=== PATIENT | male | born 1940 | race Caucasian/White ===

== ENCOUNTER 2019-04-30 14:33 | Emergency (ER) | payer MEDICARE ==
--- NOTE | 2019-04-30 17:19 | ED ---
Laceration/Wound HPI - HPI Summary HPI Summary: 78-year-old male presents with complaints of laceration to the tip of his left index finger. States he accidentally cut his finger on with a sharp knife while deboning a pork chop about 1 hour ago. Bleeding was controlled prior to arrival with direct pressure. Reports full range of motion to the finger. Last tetanus was approximately 2 years ago. Denies any numbness or tingling. - History of Current Complaint Stated Complaint: FINGER LAC Time Seen by Provider: 04/30/19 16:29 Hx Obtained From: Patient Pain Intensity: 0 - Additional Pertinent History Primary Care Physician: [id number] - Allergy/Home Medications Allergies/Adverse Reactions: Allergies Allergy/AdvReac Type Severity Reaction Status Date / Time oxycodone Allergy Altered Verified 04/30/19 14:52 Mental Status PMH/Surg Hx/FS Hx/Imm Hx Endocrine/Hematology History: Reports: Hx Diabetes - Type 2 Cardiovascular History: Reports: Hx Hypercholesterolemia, Hx Hypertension Denies: Hx Pacemaker/ICD Respiratory History: Reports: Hx Sleep Apnea - pt stated he cannot tolerate wearing mask Denies: Hx Asthma GI History: Reports: Hx Gastroesophageal Reflux Disease History: Reports: Other Problems/Disorders - sees Dr. Johnson regularly for prostate Musculoskeletal History: Reports: Hx Arthritis, Hx Back Problems Sensory History: Denies: Hx Cataracts, Hx Contacts or Glasses, Hx Glaucoma, Hx Hearing Aid Opthamlomology History: Denies: Hx Cataracts, Hx Contacts or Glasses, Hx Glaucoma Neurological History: Reports: Other Neuro Impairments/Disorders - HX OF PINEAL CYCST MANY YEARS AGO/PAIN CLINIC PATIENT Psychiatric History: Denies: Hx Panic Disorder - Surgical History Surgery Procedure, Year, and Place: VERICOCELE 35 YRS AGO. CYST REMOVED FROM INFRONT OF RT EAR. A CHILD. LEFT HYDROCELE 2008 AAT [facility] [place]. LAMINECTOMY 09/06 - Immunization History Date of Tetanus Vaccine: 2 years ago Infectious Disease History: Yes Infectious Disease History: Reports: Hx Shingles - 2013 Denies: Traveled Outside the [place] in Last 30 Days - Family History Known Family History: Positive: Cardiac Disease - Social History Occupation: Retired Lives: With Family Alcohol Use: Weekly Alcohol Amount: 2-4 oz vodka daily Substance Use Type: Reports: None Smoking Status (MU): Former Smoker Type: Cigars Amount Used/How Often: 3 cigars/week Have You Smoked in the Last Year: Yes Review of Systems Constitutional: Negative Cardiovascular: Negative Respiratory: Negative Gastrointestinal: Negative Genitourinary: Negative Negative: Decreased ROM Skin: Other - See HPI Neurological: Negative All Other Systems Reviewed And Are Negative: Yes Physical Exam - Summary Physical Exam Summary: GENERAL APPEARANCE: Well developed, well nourished, alert and cooperative, and appears to be in no acute distress. CARDIAC: Normal S1 and S2. No S3, S4 or murmurs. Rhythm is regular. There is no peripheral edema, cyanosis or pallor. Extremities are warm and well perfused. Capillary refill is less than 2 seconds. Peripheral pulses intact. LUNGS: Clear to auscultation without rales, rhonchi, wheezing or diminished breath sounds. ABDOMEN: Positive bowel sounds. Soft, nondistended, nontender. No guarding or rebound. No masses or hepatosplenomegally. MUSKULOSKELETAL: ROM intact to all extremities. No joint erythema or tenderness. Normal muscular development. Normal gait. EXTREMITIES: Linear superficial c-shaped flap laceration to the pad of his distal left index finger with bleeding controlled. No nail involvement. SKIN: Skin normal color, texture and turgor. Triage Information Reviewed: Yes Vital Signs On Initial Exam: Initial Vitals Temp Pulse Resp BP Pulse Ox 98.5 F 61 16 136/58 97 04/30/19 14:46 04/30/19 14:46 04/30/19 14:46 04/30/19 14:46 04/30/19 14:46 Vital Signs Reviewed: Yes Procedures - Laceration/Wound Repair 1 Location: upper extremity - left index finger Description: Linear - flap laceration Length, Depth and Shape: superficial 1 cm c-shaped flap laceration Irrigated w/ Saline (ccs): 500 Laceration/Wound Explored: clean Closure: Skin Adhesive, SteriStrips Diagnostics - Vital Signs Vital Signs Temp Pulse Resp BP Pulse Ox 04/30/19 14:46 98.5 F 61 16 136/58 97 - Laboratory Lab Statement: Any lab studies that have been ordered have been reviewed, and results considered in the medical decision making process. Laceration Repair Course/Dx - Course Course Of Treatment: 78-year-old male presents with complaints of laceration to the tip of his left index finger. States he accidentally cut his finger on with a sharp knife while deboning a pork chop about 1 hour ago. Bleeding was controlled prior to arrival with direct pressure. Reports full range of motion to the finger. Last tetanus was approximately 2 years ago. Denies any numbness or tingling. Afebrile. Vital signs stable. On exam patient was noted to have a linear superficial flap laceration to the pad of his distal left index finger with bleeding controlled. No nail involvement. The wound was thoroughly irrigated by the RN prior to wound repair. The wound margins were well approximated therefore decision was made to close the wound using Steri- Strips and a skin adhesive. A clean gauze dressing was applied by the RN. Wound care, anticipatory guidance, and warning symptoms were reviewed with the patient. Verbalizes understanding and agrees with plan of care. - Differential Dx Differental Diagnoses: Laceration, Tendon Laceration - Clinical Impression Provider Diagnoses: Laceration of left index finger Discharge ED - Sign-Out/Discharge Documenting (check all that apply): Patient Departure All imaging exams completed and their final reports reviewed: No Studies - Discharge Plan Condition: Stable Disposition: HOME Patient Education Materials: Finger Laceration (ED), Skin Adhesive Care (ED), Steristrips (ED) Referrals: Beba Velazquez MD [Primary Care Provider] - Additional Instructions: Your laceration as repaired with a combination of skin adhesive and Steri- Strips. The adhesive will slowly wear off over the next several days. Keep the adhesive dry for the next 24 hours. After 24 hours you may shower and wash your hands as usual. Do not apply any lotions or ointments to the adhesive as this may dissolve the adhesive and cause the wound to reopen. The Steri-Strips will slowly peel up from the ends over the next few days. You may trim the ends as needed but do not pull off or you may reopen the wound. Keep the wound covered with a dressing. Change this at least once a day or anytime the dressing becomes wet or soiled. Take acetaminophen (Tylenol) or ibuprofen (Advil, Motrin) according to directions as needed for pain. Watch for signs of infection including fever greater than 100.5 F, severe pain not managed with with pain medicine, redness that spreads, swelling of the finger, pus draining from the wound, or any worsening of symptoms. Seek immediate medical attention if any of these occur. - Billing Disposition and Condition Condition: STABLE Disposition: Home
[2019-04-30 18:01] VITALS: BP 132/64
--- OUTSIDE RECORDS SUMMARY | 2019-05-06 14:02 | XMS REPORT | Continuity of Care Document ---
:1940 External Reference #:[id number] Author Name Mai Araiza M.D. (transmitted by agent of provider Savana Aguilar) Address [address] [place] [address] Care Team Providers Name Role Phone Beba Turner MD - Internal Care Team Information [employer] Vendor Medicine Problems Active Problems Provider Date Morbid obesity Mai Araiza M.D. Onset: 09/16/2015 Mixed hyperlipidemia Mai Araiza M.D. 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 Onset: 10/12/2015 coronary artery without angina pectoris Essential hypertension Mai Araiza M.D. Onset: 11/30/2016 Neurogenic claudication co-occurrent and due to Gunnar Mcguire M.D. Onset: spinal stenosis of lumbar region Social History Type Date Description Comments Sex Unknown Tobacco Use Start: Unknown Never Smoked Cigarettes ETOH Use Denies alcohol use no alcohol since 2015 ETOH Use Consumes 1 glass of wine per day Recreational Drug Use Denies Drug Use Tobacco Use Start: Unknown Patient is a former smoked occasional End: Unknown smoker cigar- pt no longer smokes, pt only chews on them Smoking Status Reviewed: 03/25/19 Patient is a former smoked occasional smoker cigar- pt no longer smokes, pt only chews on them Exercise Type/Frequency Exercises sporadically Allergies, Adverse Reactions, Alerts Active Allergies Reaction Severity Comments Date Oxycodone unconsciousness Severe 11/30/2016 Inactive Allergies NKDA 04/17/2014 Medications Active Medications SIG Qnty Indications Ordering Provider Date Magnesium Oxide 1 by mouth 90caps Mai Araiza M.D. 04/12/2017 400mg every day Capsules Atorvastatin Calcium Take 1 tab (20 60tabs Macadam, Beba 20mg mg) VALENTINA Gann MD Tablets Omeprazole 1 t po bid Unknown 20mg Capsules DR Thakkar 1 by mouth 90tabs Unknown 100-25mg Tablets every day Aspir-81 1 by mouth Unknown 81mg Tablets DR every day Diltiazem HCL ER 1 by mouth Unknown 240mg every day Caps ER 24HR Multivitamin Adult 1 by mouth Unknown every day Tablets Vitamin D-3 1 by mouth Unknown 1000Unit every day Capsules Cpap nasal Cpap Unknown Device Medications Administered in Office Medication SIG Qnty Indications Ordering Provider Date Technetium TC 99M Mai Araiza M.D. 04/13/2017 Tetrofosmin, Per Unit Dose Up To 40 Millicuries Injection Technetium TC 99M William Buckner M.D., 04/12/2017 Tetrofosmin, Per Unit Dose [facility] Up To 40 Millicuries Injection Inj, Regadenoson, 0.1 MG Anjel Fonseca, DO [facility] 09/30/2015 Injection Technetium TC 99M Anjel Fonseca, DO [facility] 09/30/2015 Tetrofosmin, Per Unit Dose Up To 40 Millicuries Injection Immunizations Description No Information Available Vital Signs Date Vital Result Comment 03/25/2019 8:36am Height 69 inches 5'9" Weight 244.00 lb with shoes Heart Rate 74 /min BP Systolic Sitting 136 mmHg Ra BP Diastolic Sitting 76 mmHg Ra BP Systolic Standing 126 mmHg Ra BP Diastolic Standing 70 mmHg Ra BMI (Body Mass Index) 36.0 kg/m2 Ejection Fraction 65-70% Echo 10/07/2015 03/26/2018 8:41am Height 69 inches 5'9" Weight 231.00 lb Heart Rate 74 /min regular BP Systolic Sitting 122 mmHg large cuff left arm BP Diastolic Sitting 70 mmHg large cuff left arm BP Systolic Standing 134 mmHg BP Diastolic Standing 72 mmHg Respiratory Rate 16 /min Pain Level 0 O2 % BldC Oximetry 97 % BMI (Body Mass Index) 34.1 kg/m2 Results Description No Information Available Procedures Date Code Description Status 03/25/2019 17990 EKG Tracing & Interpretation Completed Medical Devices Description No Information Available Encounters Type Date Location Provider Dx Diagnosis Office Visit 03/25/2019 [facility] aMi Araiza I25.10 [facility] heart 9:00a Of Luz Terrell disease of [place] coronary artery w/o ang pctrs E78.2 Mixed hyperlipidemia I10 Essential (primary) hypertension R00.2 Palpitations Z68.36 Body mass index (BMI) 36.0-36.9, adult Assessments Date Code Description Provider 03/25/2019 I25.10 Atherosclerotic heart disease of [place] coronary Mai Araiza M.D. artery without angina pectoris 03/25/2019 E78.2 Mixed hyperlipidemia Mai Araiza M.D. 03/25/2019 I10 Essential (primary) hypertension Mai Araiza M.D. 03/25/2019 R00.2 Palpitations Mai Araiza M.D. 03/25/2019 Z68.36 Body mass index (BMI) 36.0-36.9, adult Mai Araiza M.D. Plan of Treatment 03/25/2019 - Mai Araiza M.D.I25.10 Atherosclerotic heart disease of [place] coronary artery without angina pectorisComments:Your ECG is normal.Follow up:1 yearE78.2 Mixed hyperlipidemiaComments:Good control. LDL goal is <= 70 with coronary artery disease.Recommendations:Continue current medication Healthy fats are nuts, oily fish and more. Avoid excessive fatty meats.For your elevated triglycerides and weight: Minimize foods with refined sugar, flour. Low "white" foods, white flour, sugar, rice, potatoes.I10 Essential (primary) hypertensionComments:Well controlled on Diltiazem, Hyzaar.R00.2 PalpitationsComments:With rest, improved with Magnesium, history of PVC' s.Z68.36 Body mass index (BMI) 36.0-36.9, adultComments:Continue to work on diet : smaller portions, more regular meals to decrease the chance of glucose/sugar problems. Mediterranean diet, avoid/minimize concentrated sweets and refined carbohydrates: low "white" foods, white sugar, white flour, white rice, potatoes... Functional Status Description No Information Available Mental Status Description No Information Available Referrals Description No Information Available
--- OUTSIDE RECORDS SUMMARY | 2019-05-06 14:02 | XMS REPORT | Continuity of Care Document ---
:1940 External Reference #:[id number] Author Name Beba Turner MD Address [address] [place] [id number] Care Team Providers Name Role Phone Shaun Lu M.D. (Neurosurgeon) Care Team Information [employer] Mai Arazia Care Team Information [employer] [phone] Problems Active Problems Provider Date Benign essential hypertension Fernanda Aguirre RN MS SCRAPPER Onset: 11/29/2006 Pure hypercholesterolemia Fernanda Aguirre RN MS SCR[facility]PER Onset: 11/29/2006 Peptic reflux disease Fernanda Aguirre, RN MS SCRAPPER Onset: 11/29/2006 Type 2 diabetes mellitus Beba Turner MD Onset: 07/20/2010 Mixed hyperlipidemia Beba Turner MD Onset: 11/19/2017 Essential hypertension Beba Turner MD Onset: 09/01/2015 Social History Type Date Description Comments Sex Unknown Tobacco Use Start: Unknown Currently Smokes an Occasional quit Cigar ETOH Use consumes 3-4 glasses per week Tobacco Use Start: Unknown End: Unknown Patient is a former smoker Smoking Status Reviewed: 03/22/18 Patient is a former smoker Allergies, Adverse Reactions, Alerts Active Allergies Reaction Severity Comments Date Oxycodone mental status changes 06/06/2016 Inactive Allergies NKDA 11/29/2006 Medications Active Medications SIG Qnty Indications Ordering Date Provider Meclizine HCL take 1/2-1 tablet 15tabs H81.10 Beba Turner 03/11/2019 25mg by mouth three MD Christina Tablets times daily as needed Magnesium Oxide 1 by mouth every E83.42 Beba Turner 11/19/2017 250mg night at bedtime MD Chritsina Tablets Cpap G47.33 [facility] 09/11/2017 MD Christina Cardizem LA 1 by mouth every 90tabs I10 [facility] 07/09/2017 240mg day MD Christina Tablets ER 24HR Atorvastatin Calcium Take 1 Tablet AT 90tabs E78.2 [facility] 2017 Bedtime MD Christina 20mg Tablets Nystatin apply to affected 90gm [facility] 07/02/2017 382036Suhe/GM area(s) two times MD Christina Cream a day Valacyclovir HCL Take Two Tablets 30tabs [facility] 07/21/2016 1gm By Mouth Twice A M, Tablets Day For 1 Day as Needed For Cold Sore Aspirin 1 po qd [facility] 07/10/2013 81mg Tablets MD Christina Losartan take 1 tablet 90tabs I10 [facility] 10/14/2010 Potassium/Hydrochloro daily MD Christina thiazide 100-25mg Tablets Test Strips For FSBG'S qd 1Box E11.9 [facility] 08/18/2009 MD Christina Lancets for fsbg's qam 1Box E11.9 [facility] 08/18/2009 Misc dx: dm 2 MD Christina Omeprazole 1 by mouth twice 180caps K21.0 [facility] 06/16/2009 20mg a day MD Christina Capsules DR Vitamin D 2 po qd E55.9 [facility] 08/27/2008 1000Unit MD Christina Capsules Metformin HCL ER 2 by mouth twice 360tabs E11.9 [facility] 2008 500mg a day MD Christina Tablets ER 24HR Immunizations CPT Code Status Date Vaccine Lot # [id number] Given 03/07/2019 Shingrix (Shingles) Zoster Vaccine HZV, Recombinant, Subunit, Adj 45822 Given 03/07/2019 Fluzone Highdose Age 65 And Over Preservative & Antibiotic Free 23891 Given 12/13/2018 Shingrix (Shingles) Zoster Vaccine HZV, Recombinant, Subunit, Adj 58664 Given 02/13/2018 Influenza Vac, Quadrivalent, Split, 0.5mL Dosage, [id number] Im Use 32829 Given 02/22/2017 Pneumococcal 23 Immunization Adult Or [id number] Immunosuppressed Patient 85967 Given 02/22/2017 Influenza Vac, Quadrivalent, Split, 0.5mL Dosage, [id number] Im Use 95373 Given 05/08/2016 Tdap (Adacel) Ages 7 And Above Only [id number] 71061 Given 02/12/2016 Influenza Virus Vaccine,Quadrivalent,Split,Preserv Free, 0.5mL,Im 35666 Given 02/11/2016 Influenza Vac, Quadrivalent, Split, 0.5mL Dosage, Im Use 23781 Given 03/25/2015 Afluria Or Fluvirin Flu Vac Intramuscular 77114 Given 10/12/2014 Prevnar 13 Pneumococal Conjugate Vaccine [id number] 57738 Given 06/04/2014 Zoster (Zostavax) Q2038 Given 02/26/2014 Fluzone Trivalent Immunization [id number] Q2038 Given 03/10/2013 Fluzone Trivalent Immunization [id number] Q2038 Given 03/14/2012 Fluzone Trivalent Immunization [id number] Q2038 Given 02/27/2011 Fluzone Trivalent Immunization [id number] 96138 Given 02/23/2010 Afluria Or Fluvirin Flu Vac Intramuscular [id number] 82347 Given 05/25/2009 Influenza Virus Vaccine Pandemic Formulation - [id number] 00181 Given 02/10/2009 Afluria Or Fluvirin Flu Vac Intramuscular 58022 Given 03/24/2008 Pneumococcal 23 Immunization Adult Or [id number] Immunosuppressed Patient 07529 Given 03/19/2007 Afluria Or Fluvirin Flu Vac Intramuscular 69320 Given 03/19/2007 Afluria Or Fluvirin Flu Vac Intramuscular [id number] Vital Signs Date Vital Result Comment 03/11/2019 8:20am Weight 247.00 lb Heart Rate 68 /min BP Systolic 142 mmHg BP Diastolic 66 mmHg BP Systolic Recheck 136 mmHg BP Diastolic Recheck 64 mmHg Height 69 inches 5'9" BMI (Body Mass Index) 36.5 kg/m2 09/06/2018 11:33am Weight 233.00 lb Heart Rate 72 /min BP Systolic 114 mmHg BP Diastolic 64 mmHg Height 69 inches 5'9" BMI (Body Mass Index) 34.4 kg/m2 Results Test Date Facility Test Result H/L Range Note Laboratory test finding 03/11/2019 [facility] Hemoglobin A1c <pending> Laboratory test finding 03/11/2019 [facility] <pending> Vit D 25Oh <pending> Laboratory test 03/04/2019 [facility] PSA Diagnostic 6.501 ng/ mL High 0-4.0 1 finding 1 Serum levels of PSA measured using the [employer] [place] DXI Hybritech immunoassay should not be interpreted as absolute evidence of the presence or absence of disease. The PSA value should be used in conjunction with other pertinent clinical diagnostic procedures. The values obtained with different assay methods or kits cannot be used interchangeably. Procedures Date Code Description Status 03/11/2019 24843 Electrocardiogram Complete Completed 09/27/2009 [id number] Colonoscopy Completed Medical Devices Description No Information Available Encounters Description No Information Available Assessments Date Code Description Provider 03/11/2019 E66.9 Obesity, unspecified Beba Turner MD 03/11/2019 Z00.01 Encounter for general adult medical Beba Turner MD examination with abnormal findings 03/11/2019 I10 Essential (primary) hypertension Beba Turner MD 03/11/2019 E11.9 Type 2 diabetes mellitus without Beba Turner MD complications 03/11/2019 E55.9 Vitamin D deficiency, unspecified Beba Turner MD 03/11/2019 I77.810 Thoracic aortic ectasia Beba Turner MD 03/11/2019 M48.07 Spinal stenosis, lumbosacral region Beba Turner MD 03/11/2019 E78.2 Mixed hyperlipidemia Beba Turner MD 03/11/2019 K21.0 Gastro-esophageal reflux disease with Beba Turner MD esophagitis 03/11/2019 G47.33 Obstructive sleep apnea (adult) (pediatric) Beba Turner MD 03/11/2019 Z12.11 Encounter for screening for malignant Beba Turner MD neoplasm of colon 03/11/2019 Z13.31 Encounter for screening for depression Beba Turner MD 03/11/2019 E83.42 Hypomagnesemia Beba Turner MD 03/11/2019 H81.10 Benign paroxysmal vertigo, unspecified ear Beba Turner MD 03/11/2019 Z68.36 Body mass index (BMI) 36.0-36.9, adult Beba Turner MD Plan of Treatment 03/11/2019 - Beba Turner MDE66.9 Obesity, mtbzyeaorswZ61.01 Encounter for general adult medical examination with abnormal zaucdijuA11 Essential ( primary) vaikdlzsijyqS49.9 Type 2 diabetes mellitus without znsmaroypkjqzL13.9 Vitamin D deficiency, kuagissdfstW01.810 Thoracic aortic igeyhmuY36.07 Spinal stenosis, lumbosacral sncrdwB77.2 Mixed hyperlipidemiaFollow up:4 mosK21.0 Gastro-esophageal reflux disease with okbebgjszldN21.33 Obstructive sleep apnea (adult) (pediatric)Z12.11 Encounter for screening for malignant neoplasm of qxsvfI21.31 Encounter for screening for zirjlijahzM38.42 HpsqjghmtunqenW76.10 Benign paroxysmal vertigo, unspecified earNew Medication:Meclizine HCL 25 mg - take 1/2-1 tablet by mouth three times daily as kbyetvK76.36 Body mass index ( BMI) 36.0-36.9, adult Functional Status Description No Information Available Mental Status Description No Information Available Referrals Description No Information Available
--- OUTSIDE RECORDS SUMMARY | 2019-05-06 14:02 | XMS REPORT | Continuity of Care Document ---
:1940 External Reference #:[id number] Author Name Estela Sykes Care Team Providers Name Role Phone Shaun Lu M.D. (Neurosurgeon) Care Team Information Analog Device Designer Mai Araiza Care Team Information Analog Device Designer [phone] Problems Active Problems Provider Date Benign essential hypertension Fernanda Aguirre RN MS CLERK TRAVEL RESERVATIONS Onset: 11/29/2006 Pure hypercholesterolemia Fernanda Aguirre RN MS CLERK TRAVEL RESERVATIONS Onset: 11/29/2006 Peptic reflux disease Fernanda Aguirre RN MS CLERK TRAVEL RESERVATIONS Onset: 11/29/2006 Type 2 diabetes mellitus Beba [...] Turner 11/19/2017 250mg night at bedtime MD Christina Tablets Cpap G47.33 [facility] 09/11/2017 MD Christina Cardizem LA 1 by mouth every 90tabs I10 [facility] 07/09/2017 240mg day MD Christina Tablets ER 24HR Atorvastatin Calcium Take 1 Tablet AT 90tabs E78.2 [facility] 2017 Bedtime MD Christina 20mg Tablets Nystatin apply to affected 90gm [facility] 07/02/2017 [id number]/GM area(s) two times MD Christina Cream a day Valacyclovir HCL Take Two Tablets 30tabs [facility] 07/21/2016 1gm By Mouth Twice A MMD Tablets Day For 1 Day as Needed For Cold Sore Aspirin 1 po qd [facility] 07/10/2013 81mg Tablets MD Christina Losartan take 1 tablet 90tabs I10 [facility] 10/14/2010 Potassium/Hydrochloro daily MD Christina thiazide 100-25mg Tablets Test Strips For FSBG'S qd 1Box E11.9 [facility] 08/18/2009 MD Christina Lancets for fsbg's qam 1Box E11.9 [facility] 08/18/2009 Misc dx: dm 2 MD Christina Omeprazole 1 by mouth twice 180caps K21.0 [facility] 06/16/2009 20mg a day MD Christina Capsules DR Vitamin D 2 po qd E55.9 [facility] 08/27/2008 1000Unit MD Christina Capsules Metformin HCL ER 2 by mouth twice 360tabs E11.9 [facility] 2008 500mg a day MD Christina Tablets ER 24HR Immunizations CPT Code Status Date Vaccine Lot # [id number] Given 03/07/2019 Shingrix (Shingles) Zoster Vaccine HZV, Recombinant, Subunit, Adj 98223 Given 03/07/2019 Fluzone Highdose Age 65 And Over Preservative & Antibiotic Free 60064 Given 12/13/2018 Shingrix (Shingles) Zoster Vaccine HZV, Recombinant, Subunit, Adj 57061 Given 02/13/2018 Influenza Vac, Quadrivalent, Split, 0.5mL Dosage, [id number] Im Use 83971 Given 02/22/2017 Pneumococcal 23 Immunization Adult Or [id number] Immunosuppressed Patient 13660 Given 02/22/2017 Influenza Vac, Quadrivalent, Split, 0.5mL Dosage, [id number] Im Use 56049 Given 05/08/2016 Tdap (Adacel) Ages 7 And Above Only [id number] 90017 Given 02/12/2016 Influenza Virus Vaccine,Quadrivalent,Split,Preserv Free, 0.5mL,Im 02212 Given 02/11/2016 Influenza Vac, Quadrivalent, Split, 0.5mL Dosage, Im Use 92110 Given 03/25/2015 Afluria Or Fluvirin Flu Vac Intramuscular 14331 Given 10/12/2014 Prevnar 13 Pneumococal Conjugate Vaccine [id number] 61566 Given 06/04/2014 Zoster (Zostavax) Q2038 Given 02/26/2014 Fluzone Trivalent Immunization [id number] Q2038 Given 03/10/2013 Fluzone Trivalent Immunization [id number] Q2038 Given 03/14/2012 Fluzone Trivalent Immunization [id number] Q2038 Given 02/27/2011 Fluzone Trivalent Immunization [id number] 01376 Given 02/23/2010 Afluria Or Fluvirin Flu Vac Intramuscular [id number] 72631 Given 05/25/2009 Influenza Virus Vaccine Pandemic Formulation - [id number] 84228 Given 02/10/2009 Afluria Or Fluvirin Flu Vac Intramuscular 42544 Given 03/24/2008 Pneumococcal 23 Immunization Adult Or [id number] Immunosuppressed Patient 72303 Given 03/19/2007 Afluria Or Fluvirin Flu Vac Intramuscular 49330 Given 03/19/2007 Afluria Or Fluvirin Flu Vac Intramuscular [id number] Vital Signs Date Vital Result Comment 03/11/2019 [...] Date Facility Test Result H/L Range Note CBC with Auto Diff-fcmg 03/11/2019 [facility] WBC 6.7 K/uL 4.1-11.0 1 RBC 4.82 M/uL 4.60-6.10 Hemoglobin 14.7 gm/dL 13.5-18.0 Hematocrit 42.3 % 41.0-53.0 MCV 87.8 fL 80.0-97.0 MCH 30.6 pg 27.0-32.0 MCHC 34.8 g/dL 32.0-36.0 RDW 14.3 % 11.5-14.5 PLT Count 179 K/ul 140-400 MPV 8.9 FL 7.1-10.7 Neutrophil 65.2 % 35.0-75.0 Lymphocyte 21.4 % 16.0-52.0 Monocyte 10.6 % High 2.0-10.0 Eosinophil 2.2 % 0.0-5.0 Basophil 0.6 % 0.0-4.0 Abs Neutrophils 4.3 K/uL 2.1-8.0 Abs Lymphocytes 1.4 K/uL 0.8-5.5 Abs Monocytes 0.7 K/uL 0.1-1.0 Abs Eosinophils 0.1 K/uL 0.0-0.5 Abs Basophils 0.0 K/uL 0.0-0.3 Comprehensive Met Panel-FCMG 03/11/2019 [facility] Sodium 134 mmol/L Low 135 -146 2 Potassium 4.3 mmol/L 3.5-5.2 Chloride# 95 mmol/L Low 97-110 3 Carbon Dioxide 31 mmol/L 24-34 Calcium 9.7 mg/dL 8.5-10.5 4 Glucose 103 mg/dL 70-105 BUN 14 mg/dL 6-26 Creatinine 0.7 mg/dL 0.5-1.4 Total Protein 6.8 g/dL 6.0-8.0 Albumin 4.1 g/dL 3.6-4.9 Globulin 2.7 g/dL 2.0-3.5 A/G Ratio 1.5 Ratio 1.0-2.2 Total Bilirubin 0.6 mg/dL 0.1-1.3 Alkaline Phosphatase 56 U/L 24-140 Alt 16 U/L 3-42 Ast 21 U/L 8-42 Anion Gap 8 mmol/L 5-15 5 Female Egfr 84 >60 6 Male Egfr 91 >60 7 Hemoglobin A1c 03/11/2019 [facility] Hemoglobin A1c 5.8 % 4.1-5.9 Estimated Average Glucose Calc 120 mg/dL 71-140 Lipid 03/11/2019 [facility] Cholesterol 136 mg/dL 50-199 Triglycerides 90 mg/dL 30-200 HDL 47 mg/dL 29-71 8 Chol/ HDL Ratio 2.9 ratio Low 4.0-6.7 VLDL 18 mg/dL 2-29 LDL (Calc) 72 mg/dL 20-99 9 Laboratory test finding 03/11/2019 [facility] Magnesium 1.8 mg/dL 1.5-2.7 Vitamin D 25 Hydroxy 48 ng/mL 30-100 10 Microalb/Creat Panel 03/11/2019 [facility] Creatinine, Urine 74.0 mg/dL 11 Microalbumin < 7.0 ug/ml 5.0-20.0 Laboratory test 03/04/2019 [facility] PSA Diagnostic 6.501 ng/ mL High 0-4.0 12 finding 1 This sample is drawn by:JOANN. 2 Updated reference range on new analyzer 3 Updated reference range on new analyzer 4 Updated reference range 10-02-2018 5 Updated Reference Range 6 Concerning GFR Guidelines for Americans: Normal function or mild renal disease, if clinically at risk: >/= 60 mL/min Moderately decreased: 30-59 Severely decreased: 15-29 Renal failure: <15 There is reduced accuracy above 60ml/min/1.73 m squared, but the numeric value may be clinically useful in the near 60 range 7 Concerning GFR Guidelines: Normal function or mild renal disease, if clinically at risk: >/= 60 mL/min Moderately decreased: 30-59 Severely decreased: 15-29 Renal failure: <15 There is reduced accuracy above 60ml/min/1.73 m squared, but the numeric value may be clinically useful in the near 60 range Glomerular Filtration Rate (GFR) is estimated based on the CKD-EPI equation, which assumes a steady state for creatinine as recommended by the National Kidney Disease Education Program in conjunction with the National Institutes of Health and the National Kidney Foundation. Clinical conditions in which it may be necessary to measure GFR by using clearance methods include extremes of age and body size, severe malnutrition or obesity, diseases of skeletal muscle, paraplegia or quadriplegia, vegetarian diet, rapidly changing kidney function, and calculation of the dose of potentially toxic drugs that are excreted by the kidneys. 8 Per NCEP ATP III Guidelines: Results lower than 40 mg/dL are suggestive of increased risk for coronary artery disease. Results > or = to 60 mg/dL are considered a negative risk factor. 9 Per NCEP ATP III Guidelines: Normal Population <130 Patients with medical conditions: CHD/DM Optimal: <100 Borderline high: 130-159 High: 160-189 Very high: >189 10 Clinical Guidelines for recommended serum 25(OH)Vitamin D Deficient at less than 20 ng/mL Insufficient at 20 to <30 ng/mL Sufficient at 30-100 ng/mL Toxicity at greater than 100 ng/mL 11 Unable to calculate ratio. Microalbumin <7.0 12 Serum levels of PSA measured using the [employer] DXI Hybritech immunoassay should not be interpreted as absolute evidence of the presence or absence of disease. The PSA value should be used in conjunction with other pertinent clinical diagnostic procedures. The values obtained with different assay methods or kits cannot be used interchangeably. Procedures Date Code Description Status 03/11/2019 09255 Electrocardiogram Complete Completed 09/27/2009 [id number] Colonoscopy Completed Medical Devices Description No Information [...] 03/11/2019 Z12.11 Encounter for screening for malignant eBba Turner MD neoplasm of colon 03/11/2019 Z13.31 Encounter for screening for depression Beba Turner MD 03/11/2019 E83.42 Hypomagnesemia Beba Turner MD 03/11/2019 H81.10 Benign paroxysmal vertigo, unspecified ear Beba Turner MD 03/11/2019 Z68.36 Body mass index (BMI) 36.0-36.9, adult Beba Turner MD 03/11/2019 E11.9 Type 2 diabetes mellitus without [facility] complications Plan of Treatment Future Appointment(s):07/15/2019 8:15 am - Beba Turner MD at [facility] - Beba Turner MDE66.9 Obesity, zmazaikvqtjT41.01 Encounter for general adult medical examination with abnormal iorjutqhF78 Essential (primary) tknyvfyqligbD36.9 Type 2 diabetes mellitus without hchfptssgyoqcU68.9 Vitamin D deficiency, nmtiqwgijneC01.810 Thoracic aortic kmfgoyhO43.07 Spinal stenosis, lumbosacral oqpdvcF87.2 Mixed hyperlipidemiaFollow up:4 mosK21.0 Gastro- esophageal reflux disease with freuexhmfdsX99.33 Obstructive sleep apnea (adult ) (pediatric)Z12.11 Encounter for screening for malignant neoplasm of kaoqpS29.31 Encounter for screening for fkltrlrooiN88.42 ZaztbdhvzfazxjH04.10 Benign paroxysmal vertigo, unspecified earNew Medication:Meclizine HCL 25 mg - take 1/2-1 tablet by mouth three times daily as ijemvuN71.36 Body mass index ( BMI) 36.0-36.9, adult Functional Status Description No Information Available Mental Status Description No Information Available Referrals Description No Information Available
== END 2019-04-30 17:40 | disposition home or self-care (01) ==
LOC: UCEAST 14:33
DX: S61.211A Laceration without foreign body of left index finger without damage to nail, initial encounter (principal); W26.0XXA Contact with knife, initial encounter; Y93.G1 Activity, food preparation and clean up; Y92.9 Unspecified place or not applicable; E11.9 Type 2 diabetes mellitus without complications; I10 Essential (primary) hypertension; K21.9 Gastro-esophageal reflux disease without esophagitis; Z79.82 Long term (current) use of aspirin; Z88.5 Allergy status to narcotic agent; Z87.891 Personal history of nicotine dependence
CPT/HCPCS: 12001; 99212; 99213; G0463